=== PATIENT | male | born 1990 | race Asian ===

== ENCOUNTER 2017-09-22 15:15 | Emergency (ER) | payer OTHER ==
[~2017-09-22] VITALS: Ht 182.9 cm; Wt 149.7 kg
== END 2017-09-22 16:37 | disposition home or self-care (01) ==
LOC: ED 15:15
DX: M54.5 Low back pain (principal); X50.0XXA Overexertion from strenuous movement or load, initial encounter
CPT/HCPCS: 96372; 99283; J1020; J1100; J1885